=== PATIENT | female | born 1935 | race Caucasian/White ===

== ENCOUNTER 2017-03-25 12:24 | Inpatient (IN) | payer MEDICARE ==
[~2017-03-25] VITALS: Ht 157.5 cm; Wt 69.5 kg
[~2017-03-25 12:24] MED LIST: ACEDIPPM PO; ALEN70 PO; AMLO5 PO; ASPI325 PO; ASPI81EC PO; Acetaminophen1 EAC2 PO; CALCA500CH PO; CALCAVITDA PO; CELE200 PO; CITA20 PO; CLOP75 PO; CYCL10 PO; HYDCHL12.5 PO; HYDR1TAB94 PO; LANS15EC PO; LAVAP17G PO; LISI20 PO; METO50ER PO; MULTI VITAMIN1 EACH PO; MULVITA PO; NITR100CA PO; OLME20 PO; OMEP20ER PO; OMEPRAZOLE MAGN20 MG PO; ONDA4 PO; PANT40 PO; POTCHL10ER PO; PRAV40 PO; RANI150 PO; SIMV10 PO; SIMV20 PO; Zocor20 MG PO; Zofran8 MG PO
[2017-03-25] MEDS ORDERED: Advil200 M1 PO (13:13)
[2017-03-25] MEDS ORDERED: [UNRECOGNIZED DRUG - CODE] PO (13:13)
[2017-03-25] MEDS ORDERED: EYE DROP TEARS15 ML (13:14)
[2017-03-25] MEDS ORDERED: VITAMIN D32000 UNI1 PO (13:14)
[2017-03-25 13:15] LABS: BASOPHILS ABSOLUTE AUTO 0.02 K/mm3 (0.00-0.23); BASOPHILS PERCENT AUTO 0 % (0-2); EOSINOPHILS ABSOLUTE AUTO 0.24 K/mm3 (0.00-0.68); EOSINOPHILS PERCENT AUTO 5 % (0-6); Hematocrit 35.9 % (33.0-51.0); Hemoglobin 11.2 g/dL (11.5-16.0); IMMATURE GRAN ABSOLUTE AUTO 0.03 K/mm3 (0.00-0.10); IMMATURE GRAN PERCENT AUTO 1 % (0-1); LYMPHOCYTES PERCENT AUTO 24 % (21-46); MONOCYTES ABSOLUTE AUTO 0.73 K/mm3 (0.16-1.47); MONOCYTES PERCENT AUTO 14 % (4-13); Mean Corpuscular HGB 25.3 pg (26.0-34.0); Mean Corpuscular HGB Conc 31.2 g/dL (31.5-36.5); Mean Corpuscular Volume 81 fL (80-100); NEUTROPHILS ABSOLUTE AUTO 3.06 K/mm3 (1.96-9.15); NEUTROPHILS PERCENT AUTO 57 % (41-73); Platelet Count 346 K/mm3 (150-400); RDW Coefficient Variation 13.2 % (11.7-14.2); RDW Standard Deviation 39.6 fL (35.1-46.3); Red Blood Cell Count 4.42 M/mm3 (3.80-5.20); White Blood Cell Count 5.38 K/mm3 (4.00-11.30)
[2017-03-25] MEDS ORDERED: TORSE20 PO (13:15)
[2017-03-25] MEDS ORDERED: SIMV10 PO (13:15)
[2017-03-25] MEDS ORDERED: CALCIUM PO (13:16)
[2017-03-25] MEDS ORDERED: ASCO500 PO (13:16)
[2017-03-25 13:28] LABS: Alanine Aminotransfer (ALT/SGP 32 U/L (12-78); Albumin, Blood 3.1 g/dL (3.4-5.0); Alk Phos 108 U/L (50-136); Anion Gap 10 mmol/L (6-16); Aspartate Aminotrans (AST/SGOT 23 U/L (12-37); Bilirubin, Total 0.3 mg/dL (0.1-1.0); Blood Urea Nitrogen 4 mg/dL (8-24); Bun/Creatinine Ratio 7.9 (12.0-20.0); CO2, Blood 26 mmol/L (21-32); Chloride, Blood 88 mmol/L (98-108); Creatinine, Blood 0.51 mg/dL (0.40-1.00); Globulin, Blood 3.1 g/dL (2.2-4.0); Glomerular Filtration Rate >60 (60-); Glucose, Blood 115 mg/dL (70-99); Potassium, Blood 3.4 mmol/L (3.5-5.5); Sodium, Blood 124 mmol/L (136-145); Total Protein, Blood 6.2 g/dL (6.4-8.2)
[2017-03-25 14:09] LABS: Influenza A Negative (NEGATIVE); Influenza B Negative (NEGATIVE)
[2017-03-25 15:03] LABS: Source, Urine Clean Catch
[2017-03-25 15:05] LABS: Appearance, Urine Clear (Clear); Bilirubin, Urine Neg (Neg); Blood, Urine Neg (Neg); Color, Urine Yellow (P-Yellow); Glucose Qualitative, Urine Neg (Neg); Ketones, Urine Neg (Neg); Leukocyte Esterase, Urine Neg (Neg); Nitrite, Urine Neg (Neg); Protein, Urine Neg (Neg); Urobilinogen, Urine NORM (Normal)
[2017-03-26 05:15] LABS: BASOPHILS ABSOLUTE AUTO 0.01 K/mm3 (0.00-0.23); BASOPHILS PERCENT AUTO 0 % (0-2); EOSINOPHILS PERCENT AUTO 0 % (0-6); Hematocrit 32.1 % (33.0-51.0); Hemoglobin 10.4 g/dL (11.5-16.0); IMMATURE GRAN ABSOLUTE AUTO 0.01 K/mm3 (0.00-0.10); IMMATURE GRAN PERCENT AUTO 0 % (0-1); LYMPHOCYTES ABSOLUTE AUTO 0.63 K/mm3 (0.84-5.20); LYMPHOCYTES PERCENT AUTO 18 % (21-46); MONOCYTES ABSOLUTE AUTO 0.19 K/mm3 (0.16-1.47); MONOCYTES PERCENT AUTO 5 % (4-13); Mean Corpuscular HGB 25.5 pg (26.0-34.0); Mean Corpuscular HGB Conc 32.4 g/dL (31.5-36.5); Mean Corpuscular Volume 79 fL (80-100); Mean Platelet Volume 8.9 fL (9.1-12.4); NEUTROPHILS ABSOLUTE AUTO 2.66 K/mm3 (1.96-9.15); NEUTROPHILS PERCENT AUTO 76 % (41-73); Platelet Count 307 K/mm3 (150-400); RDW Standard Deviation 37.4 fL (35.1-46.3); Red Blood Cell Count 4.08 M/mm3 (3.80-5.20)
[2017-03-26 05:33] LABS: Anion Gap 6 mmol/L (6-16); Blood Urea Nitrogen 8 mg/dL (8-24); Bun/Creatinine Ratio 16.6 (12.0-20.0); CO2, Blood 24 mmol/L (21-32); Calcium, Blood 8.2 mg/dL (8.5-10.1); Chloride, Blood 98 mmol/L (98-108); Creatinine, Blood 0.48 mg/dL (0.40-1.00); Glomerular Filtration Rate >60 (60-); Glucose, Blood 172 mg/dL (70-99); Potassium, Blood 4.5 mmol/L (3.5-5.5); Sodium, Blood 128 mmol/L (136-145)
[2017-03-27 09:22] LABS: Anion Gap 7 mmol/L (6-16); Blood Urea Nitrogen 10 mg/dL (8-24); Bun/Creatinine Ratio 20.5 (12.0-20.0); CO2, Blood 23 mmol/L (21-32); Calcium, Blood 8.2 mg/dL (8.5-10.1); Chloride, Blood 98 mmol/L (98-108); Creatinine, Blood 0.49 mg/dL (0.40-1.00); Glomerular Filtration Rate >60 (60-); Glucose, Blood 146 mg/dL (70-99); Potassium, Blood 4.9 mmol/L (3.5-5.5); Sodium, Blood 128 mmol/L (136-145)
[2017-03-27] MEDS ORDERED: Tylenol325 MG PO (14:27)
[2017-03-27] MEDS ORDERED: ALBU90OI INH (14:28)
[2017-03-27] MEDS ORDERED: DOCU100 PO (14:28)
[2017-03-27] MEDS ORDERED: AZIT250 PO (14:29)
== END 2017-03-28 13:01 | disposition home health service (06) | DRG 202 ==
LOC: ER 12:24 → SURS 12:25
PROVIDERS: Emergency Medicine; Family Medicine; Internal Medicine Endocrinology, Diabetes & Metabolism
DX: J20.9 Acute bronchitis, unspecified (principal); E87.1 Hypo-osmolality and hyponatremia; E86.0 Dehydration; E87.6 Hypokalemia; R53.1 Weakness; I10 Essential (primary) hypertension; Z90.711 Acquired absence of uterus with remaining cervical stump
CPT/HCPCS: 36415; 71046; 80048; 80053; 81003; 85025; 87070; 87205; 87804; 93005; 93010; 94640; 94760; 96361; 96372; 96374; 96375; 99285; G0378; J1650; J2405; J2930; J3480; J7030

== ENCOUNTER 2017-06-06 22:12 | Inpatient (IN) | payer MEDICARE ==
[~2017-06-06] VITALS: Ht 160 cm; Wt 73.6 kg
[~2017-06-06 22:12] MED LIST changes: +ALBU90OI INH; +ASCO500 PO; +AZIT250 PO; +Advil200 M1 PO; +CALCIUM PO; +DOCU100 PO; +EYE DROP TEARS15 ML; +TORSE20 PO; +Tylenol325 MG PO; +VITAMIN D32000 UNI1 PO; +[UNRECOGNIZED DRUG - CODE] PO
[2017-06-06 22:37] LABS: BASOPHILS ABSOLUTE AUTO 0.01 K/mm3 (0.00-0.23); BASOPHILS PERCENT AUTO 0 % (0-2); EOSINOPHILS PERCENT AUTO 0 % (0-6); Hematocrit 31.8 % (33.0-51.0); Hemoglobin 10.2 g/dL (11.5-16.0); IMMATURE GRAN ABSOLUTE AUTO 0.04 K/mm3 (0.00-0.10); IMMATURE GRAN PERCENT AUTO 0 % (0-1); LYMPHOCYTES ABSOLUTE AUTO 0.84 K/mm3 (0.84-5.20); LYMPHOCYTES PERCENT AUTO 6 % (21-46); MONOCYTES ABSOLUTE AUTO 1.09 K/mm3 (0.16-1.47); MONOCYTES PERCENT AUTO 8 % (4-13); Mean Corpuscular HGB 22.9 pg (26.0-34.0); Mean Corpuscular HGB Conc 32.1 g/dL (31.5-36.5); Mean Corpuscular Volume 71 fL (80-100); Mean Platelet Volume 9.4 fL (9.1-12.4); NEUTROPHILS PERCENT AUTO 86 % (41-73); Platelet Count 379 K/mm3 (150-400); RDW Coefficient Variation 13.7 % (11.7-14.2); Red Blood Cell Count 4.46 M/mm3 (3.80-5.20); White Blood Cell Count 13.68 K/mm3 (4.00-11.30)
[2017-06-06 22:56] LABS: Troponin I <0.015 ng/mL (0.000-0.040)
[2017-06-06 22:57] LABS: Alanine Aminotransfer (ALT/SGP 31 U/L (12-78); Albumin, Blood 3.2 g/dL (3.4-5.0); Albumin/Globulin Ratio 1.1 (0.8-1.8); Alk Phos 70 U/L (50-136); Anion Gap 9 mmol/L (6-16); Aspartate Aminotrans (AST/SGOT 20 U/L (12-37); Bilirubin, Total 0.3 mg/dL (0.1-1.0); Blood Urea Nitrogen 18 mg/dL (8-24); Bun/Creatinine Ratio 26.2 (12.0-20.0); CO2, Blood 24 mmol/L (21-32); Calcium, Blood 8.5 mg/dL (8.5-10.1); Chloride, Blood 85 mmol/L (98-108); Creatinine, Blood 0.69 mg/dL (0.40-1.00); Globulin, Blood 2.9 g/dL (2.2-4.0); Glomerular Filtration Rate >60 (60-); Glucose, Blood 158 mg/dL (70-99); Potassium, Blood 4.6 mmol/L (3.5-5.5); Sodium, Blood 118 mmol/L (136-145); Total Protein, Blood 6.1 g/dL (6.4-8.2)
[2017-06-07 00:29] LABS: Source, Urine Clean Catch
[2017-06-07 00:35] LABS: Bilirubin, Urine Neg (Neg); Blood, Urine Neg (Neg); Glucose Qualitative, Urine Neg (Neg); Ketones, Urine Neg (Neg); Leukocyte Esterase, Urine Neg (Neg); Nitrite, Urine Neg (Neg); Protein, Urine Neg (Neg); Specific Gravity, Urine 1.005 (1.003-1.022); Urobilinogen, Urine NORM (Normal)
[2017-06-07 00:37] LABS: Appearance, Urine Clear (Clear); Color, Urine Pale Yellow (P-Yellow)
[2017-06-07] MEDS ORDERED: PANT40 PO (00:46)
[2017-06-07] MEDS ORDERED: ALEN70 PO (00:48)
[2017-06-07] MEDS ORDERED: CYAN500 PO (00:51)
[2017-06-07 01:59] LABS: Source, Urine Clean Catch
[2017-06-07 02:01] LABS: Appearance, Urine Clear (Clear); Bilirubin, Urine Neg (Neg); Blood, Urine Neg (Neg); Color, Urine Pale Yellow (P-Yellow); Glucose Qualitative, Urine Neg (Neg); Ketones, Urine Neg (Neg); Leukocyte Esterase, Urine Neg (Neg); Nitrite, Urine Neg (Neg); Protein, Urine Neg (Neg); Urobilinogen, Urine NORM (Normal)
[2017-06-07 05:09] LABS: BASOPHILS ABSOLUTE AUTO 0.01 K/mm3 (0.00-0.23); BASOPHILS PERCENT AUTO 0 % (0-2); EOSINOPHILS PERCENT AUTO 0 % (0-6); Hematocrit 29.8 % (33.0-51.0); Hemoglobin 9.6 g/dL (11.5-16.0); IMMATURE GRAN ABSOLUTE AUTO 0.07 K/mm3 (0.00-0.10); IMMATURE GRAN PERCENT AUTO 1 % (0-1); LYMPHOCYTES ABSOLUTE AUTO 0.87 K/mm3 (0.84-5.20); LYMPHOCYTES PERCENT AUTO 7 % (21-46); MONOCYTES PERCENT AUTO 8 % (4-13); Mean Corpuscular HGB 23.2 pg (26.0-34.0); Mean Corpuscular HGB Conc 32.2 g/dL (31.5-36.5); Mean Corpuscular Volume 72 fL (80-100); Mean Platelet Volume 9.2 fL (9.1-12.4); NEUTROPHILS ABSOLUTE AUTO 10.13 K/mm3 (1.96-9.15); NEUTROPHILS PERCENT AUTO 85 % (41-73); Platelet Count 365 K/mm3 (150-400); RDW Coefficient Variation 13.7 % (11.7-14.2); RDW Standard Deviation 36.1 fL (35.1-46.3); Red Blood Cell Count 4.14 M/mm3 (3.80-5.20); White Blood Cell Count 11.98 K/mm3 (4.00-11.30)
[2017-06-07 05:30] LABS: Anion Gap 6 mmol/L (6-16); Blood Urea Nitrogen 16 mg/dL (8-24); Bun/Creatinine Ratio 25.1 (12.0-20.0); CO2, Blood 24 mmol/L (21-32); Calcium, Blood 8.1 mg/dL (8.5-10.1); Chloride, Blood 94 mmol/L (98-108); Creatinine, Blood 0.64 mg/dL (0.40-1.00); Glomerular Filtration Rate >60 (60-); Glucose, Blood 126 mg/dL (70-99); Potassium, Blood 4.9 mmol/L (3.5-5.5); Sodium, Blood 124 mmol/L (136-145)
[2017-06-07 11:48] LABS: Anion Gap 4 mmol/L (6-16); Blood Urea Nitrogen 14 mg/dL (8-24); Bun/Creatinine Ratio 23.2 (12.0-20.0); CO2, Blood 26 mmol/L (21-32); Calcium, Blood 8.5 mg/dL (8.5-10.1); Chloride, Blood 97 mmol/L (98-108); Glomerular Filtration Rate >60 (60-); Glucose, Blood 98 mg/dL (70-99); Potassium, Blood 4.8 mmol/L (3.5-5.5); Sodium, Blood 127 mmol/L (136-145)
[2017-06-07 13:26] LABS: Free Thyroxine 1.23 ng/dL (0.70-1.60); Thyroid Stimulating Hormone 1.53 uIU/mL (0.360-4.800)
[2017-06-07 15:15] LABS: Anion Gap 7 mmol/L (6-16); Blood Urea Nitrogen 15 mg/dL (8-24); Bun/Creatinine Ratio 23.3 (12.0-20.0); CO2, Blood 23 mmol/L (21-32); Calcium, Blood 8.3 mg/dL (8.5-10.1); Chloride, Blood 99 mmol/L (98-108); Creatinine, Blood 0.65 mg/dL (0.40-1.00); Glomerular Filtration Rate >60 (60-); Glucose, Blood 130 mg/dL (70-99); Potassium, Blood 4.7 mmol/L (3.5-5.5); Sodium, Blood 129 mmol/L (136-145)
[2017-06-07 18:57] LABS: Sodium, Urine, Random 20 mmol/L (20-110)
[2017-06-07 19:06] LABS: Osmolality, Urine 114 mos/kg (15-1400)
[2017-06-07 22:53] LABS: Anion Gap 6 mmol/L (6-16); Blood Urea Nitrogen 15 mg/dL (8-24); Bun/Creatinine Ratio 23.5 (12.0-20.0); CO2, Blood 25 mmol/L (21-32); Calcium, Blood 8.8 mg/dL (8.5-10.1); Chloride, Blood 98 mmol/L (98-108); Creatinine, Blood 0.64 mg/dL (0.40-1.00); Glomerular Filtration Rate >60 (60-); Glucose, Blood 106 mg/dL (70-99); Potassium, Blood 4.5 mmol/L (3.5-5.5); Sodium, Blood 129 mmol/L (136-145)
[2017-06-08 04:58] LABS: BASOPHILS PERCENT AUTO 0 % (0-2); EOSINOPHILS ABSOLUTE AUTO 0.01 K/mm3 (0.00-0.68); EOSINOPHILS PERCENT AUTO 0 % (0-6); Hematocrit 29.7 % (33.0-51.0); Hemoglobin 9.4 g/dL (11.5-16.0); IMMATURE GRAN ABSOLUTE AUTO 0.06 K/mm3 (0.00-0.10); IMMATURE GRAN PERCENT AUTO 1 % (0-1); LYMPHOCYTES ABSOLUTE AUTO 1.34 K/mm3 (0.84-5.20); LYMPHOCYTES PERCENT AUTO 13 % (21-46); MONOCYTES ABSOLUTE AUTO 0.89 K/mm3 (0.16-1.47); MONOCYTES PERCENT AUTO 9 % (4-13); Mean Corpuscular HGB 23.1 pg (26.0-34.0); Mean Corpuscular HGB Conc 31.6 g/dL (31.5-36.5); Mean Corpuscular Volume 73 fL (80-100); NEUTROPHILS ABSOLUTE AUTO 7.75 K/mm3 (1.96-9.15); NEUTROPHILS PERCENT AUTO 77 % (41-73); Platelet Count 334 K/mm3 (150-400); RDW Coefficient Variation 14.3 % (11.7-14.2); RDW Standard Deviation 37.8 fL (35.1-46.3); Red Blood Cell Count 4.07 M/mm3 (3.80-5.20); White Blood Cell Count 10.05 K/mm3 (4.00-11.30)
[2017-06-08 05:22] LABS: Anion Gap 6 mmol/L (6-16); Blood Urea Nitrogen 13 mg/dL (8-24); Bun/Creatinine Ratio 20.2 (12.0-20.0); CO2, Blood 25 mmol/L (21-32); Calcium, Blood 8.4 mg/dL (8.5-10.1); Chloride, Blood 101 mmol/L (98-108); Creatinine, Blood 0.64 mg/dL (0.40-1.00); Glomerular Filtration Rate >60 (60-); Glucose, Blood 94 mg/dL (70-99); Potassium, Blood 4.5 mmol/L (3.5-5.5); Sodium, Blood 132 mmol/L (136-145)
== END 2017-06-08 14:51 | disposition home or self-care (01) | DRG 644 ==
LOC: ER 22:12 → MEDS 06-07 00:14 → ENPENDDIS 06-08 12:25 → MEDS 06-08 14:51
PROVIDERS: Emergency Medicine; Family Medicine; Internal Medicine
DX: E22.2 Syndrome of inappropriate secretion of antidiuretic hormone (principal); E27.40 Unspecified adrenocortical insufficiency; K21.9 Gastro-esophageal reflux disease without esophagitis; R41.0 Disorientation, unspecified; M48.061 Spinal stenosis, lumbar region without neurogenic claudication; I10 Essential (primary) hypertension; D50.9 Iron deficiency anemia, unspecified; Z90.710 Acquired absence of both cervix and uterus; Z79.02 Long term (current) use of antithrombotics/antiplatelets; Z87.891 Personal history of nicotine dependence
CPT/HCPCS: 36415; 71045; 80048; 80053; 80400; 81003; 82533; 83880; 83930; 83935; 84300; 84439; 84443; 84484; 85025; 93005; 93010; 94640; 94760; 96360; 96361; 99285; J0834; J1650; J7030

== ENCOUNTER → 2017-09-04 | Outpatient (CLI) | payer MEDICARE ==
[~2017-09-04] MED LIST changes: +CYAN500 PO
[2017-09-04 14:20] LABS: Alanine Aminotransfer (ALT/SGP 26 U/L (12-78); Albumin, Blood 3.5 g/dL (3.4-5.0); Albumin/Globulin Ratio 1.2 (0.8-1.8); Alk Phos 66 U/L (40-126); Anion Gap 6 mmol/L (6-16); Aspartate Aminotrans (AST/SGOT 20 U/L (12-37); Bilirubin, Total 0.4 mg/dL (0.1-1.0); Blood Urea Nitrogen 12 mg/dL (8-24); Bun/Creatinine Ratio 17.6 (12.0-20.0); CO2, Blood 30 mmol/L (21-32); Calcium, Blood 9.1 mg/dL (8.5-10.1); Chloride, Blood 96 mmol/L (98-108); Creatinine, Blood 0.68 mg/dL (0.40-1.00); Globulin, Blood 2.9 g/dL (2.2-4.0); Glomerular Filtration Rate >60 (60-); Glucose, Blood 88 mg/dL (70-99); Potassium, Blood 4.6 mmol/L (3.5-5.5); Sodium, Blood 132 mmol/L (136-145); Total Protein, Blood 6.4 g/dL (6.4-8.2)
== END | disposition home or self-care (01) ==
LOC: LAB SHORT 14:04 → LAB EV 14:04
PROVIDERS: Family Medicine
DX: E87.1 Hypo-osmolality and hyponatremia (principal); R06.02 Shortness of breath
CPT/HCPCS: 80053; 83880

== ENCOUNTER → 2018-03-20 | Outpatient (CLI) | payer MEDICARE | END | disposition home or self-care (01) | LOC: LAB EV 18:21 → LAB SHORT 18:21 | DX: R30.0 Dysuria (principal) | CPT/HCPCS: 87077; 87086; 87186 ==

== ENCOUNTER → 2018-03-21 | Outpatient (CLI) | payer MEDICARE | LOC: LAB SHORT 10:00 → LAB 10:00 | DX: L08.9 Local infection of the skin and subcutaneous tissue, unspecified (principal) | CPT/HCPCS: 87070; 87077; 87147; 87186; 87205 ==

== ENCOUNTER → 2018-03-28 | Outpatient (CLI) | payer MEDICARE ==
[2018-03-28 12:21] LABS: Candida species (DNA Probe) Negative (NEGATIVE); G. vaginalis (DNA Probe) Negative (NEGATIVE); T. vaginalis (DNA Probe) Negative (NEGATIVE)
== END ==
LOC: LAB SHORT 11:06 → LAB 11:06
PROVIDERS: Nurse Practitioner
DX: N72 Inflammatory disease of cervix uteri (principal)
CPT/HCPCS: 87480; 87510; 87660

== ENCOUNTER → 2018-07-16 | Outpatient (CLI) | payer MEDICARE ==
[2018-07-16 15:51] LABS: BASOPHILS ABSOLUTE AUTO 0.03 K/mm3 (0.00-0.23); BASOPHILS PERCENT AUTO 0 % (0-2); EOSINOPHILS PERCENT AUTO 1 % (0-6); Hematocrit 42.5 % (33.0-51.0); Hemoglobin 14.1 g/dL (11.5-16.0); IMMATURE GRAN ABSOLUTE AUTO 0.02 K/mm3 (0.00-0.10); IMMATURE GRAN PERCENT AUTO 0 % (0-1); LYMPHOCYTES ABSOLUTE AUTO 1.58 K/mm3 (0.84-5.20); LYMPHOCYTES PERCENT AUTO 23 % (21-46); MONOCYTES ABSOLUTE AUTO 0.73 K/mm3 (0.16-1.47); MONOCYTES PERCENT AUTO 11 % (4-13); Mean Corpuscular HGB 27.4 pg (26.0-34.0); Mean Corpuscular HGB Conc 33.2 g/dL (31.5-36.5); Mean Corpuscular Volume 83 fL (80-100); Mean Platelet Volume 9.1 fL (9.1-12.4); NEUTROPHILS ABSOLUTE AUTO 4.52 K/mm3 (1.96-9.15); NEUTROPHILS PERCENT AUTO 65 % (41-73); Platelet Count 302 K/mm3 (150-400); RDW Coefficient Variation 13.4 % (11.7-14.2); RDW Standard Deviation 40.5 fL (35.1-46.3); Red Blood Cell Count 5.14 M/mm3 (3.80-5.20); White Blood Cell Count 6.98 K/mm3 (4.00-11.30)
[2018-07-16 16:01] LABS: Alanine Aminotransfer (ALT/SGP 27 U/L (12-78); Albumin, Blood 3.4 g/dL (3.4-5.0); Alk Phos 99 U/L (40-126); Anion Gap 8 mmol/L (6-16); Aspartate Aminotrans (AST/SGOT 22 U/L (12-37); Bilirubin, Total 0.3 mg/dL (0.1-1.0); Blood Urea Nitrogen 12 mg/dL (8-24); Bun/Creatinine Ratio 18.8 (12.0-20.0); CO2, Blood 25 mmol/L (21-32); Calcium, Blood 8.7 mg/dL (8.5-10.1); Chloride, Blood 93 mmol/L (98-108); Creatinine, Blood 0.64 mg/dL (0.40-1.00); Globulin, Blood 3.4 g/dL (2.2-4.0); Glomerular Filtration Rate >60 (60-); Glucose, Blood 114 mg/dL (70-99); Potassium, Blood 4.5 mmol/L (3.5-5.5); Sodium, Blood 126 mmol/L (136-145); Total Protein, Blood 6.8 g/dL (6.4-8.2)
== END | disposition home or self-care (01) ==
LOC: LAB EV 15:42 → LAB SHORT 15:42
PROVIDERS: Family Medicine
DX: R10.9 Unspecified abdominal pain (principal)
CPT/HCPCS: 80053; 85025

== ENCOUNTER 2020-08-21 12:33 | Emergency (ER) | payer MEDICARE ==
[~2020-08-21] VITALS: Ht 157.5 cm; Wt 77.1 kg
[2020-08-21 13:02] LABS: BASOPHILS ABSOLUTE AUTO 0.03 K/mm3 (0.00-0.23); BASOPHILS PERCENT AUTO 1 % (0-2); EOSINOPHILS ABSOLUTE AUTO 0.07 K/mm3 (0.00-0.68); EOSINOPHILS PERCENT AUTO 1 % (0-6); Hematocrit 44.4 % (33.0-51.0); Hemoglobin 14.6 g/dL (11.5-16.0); IMMATURE GRAN ABSOLUTE AUTO 0.02 K/mm3 (0.00-0.10); IMMATURE GRAN PERCENT AUTO 0 % (0-1); LYMPHOCYTES ABSOLUTE AUTO 1.29 K/mm3 (0.84-5.20); LYMPHOCYTES PERCENT AUTO 21 % (21-46); MONOCYTES ABSOLUTE AUTO 0.63 K/mm3 (0.16-1.47); MONOCYTES PERCENT AUTO 10 % (4-13); Mean Corpuscular HGB 27.8 pg (26.0-34.0); Mean Corpuscular HGB Conc 32.9 g/dL (31.5-36.5); Mean Corpuscular Volume 85 fL (80-100); Mean Platelet Volume 8.6 fL (9.1-12.4); NEUTROPHILS ABSOLUTE AUTO 4.24 K/mm3 (1.96-9.15); NEUTROPHILS PERCENT AUTO 68 % (41-73); Platelet Count 292 K/mm3 (150-400); Red Blood Cell Count 5.25 M/mm3 (3.80-5.20); White Blood Cell Count 6.28 K/mm3 (4.00-11.30)
[2020-08-21 13:13] LABS: Alanine Aminotransfer (ALT/SGP 32 U/L (12-78); Albumin, Blood 3.3 g/dL (3.4-5.0); Albumin/Globulin Ratio 0.9 (0.8-1.8); Alk Phos 93 U/L (50-136); Anion Gap 6 mmol/L (6-16); Aspartate Aminotrans (AST/SGOT 21 U/L (12-37); Bilirubin, Total 0.3 mg/dL (0.1-1.0); Blood Urea Nitrogen 10 mg/dL (8-24); Bun/Creatinine Ratio 12.4 (12.0-20.0); CO2, Blood 30 mmol/L (21-32); Calcium, Blood 9.6 mg/dL (8.5-10.1); Chloride, Blood 96 mmol/L (98-108); Creatinine, Blood 0.81 mg/dL (0.40-1.00); Globulin, Blood 3.7 g/dL (2.2-4.0); Glomerular Filtration Rate >60 (60-); Glucose, Blood 164 mg/dL (70-99); Potassium, Blood 3.3 mmol/L (3.5-5.5); Sodium, Blood 132 mmol/L (136-145); Troponin I <0.015 ng/mL (0.000-0.040)
== END 2020-08-21 14:28 | disposition home or self-care (01) ==
LOC: ER 12:33
PROVIDERS: Emergency Medicine
DX: R06.02 Shortness of breath (principal); I10 Essential (primary) hypertension; E78.00 Pure hypercholesterolemia, unspecified; Z88.5 Allergy status to narcotic agent; Z88.8 Allergy status to other drugs, medicaments and biological substances; Z79.899 Other long term (current) drug therapy
CPT/HCPCS: 71046; 80053; 84484; 85025; 93005; 93010; 99284-25

== ENCOUNTER → 2020-12-28 | Outpatient (CLI) | payer MEDICARE ==
[2020-12-28 15:49] LABS: Source, Urine Voided
[2020-12-28 17:23] LABS: Appearance, Urine Clear (Clear); Bilirubin, Urine Neg (Neg); Blood, Urine 1+ (Neg); Color, Urine Yellow (P-Yellow); Glucose Qualitative, Urine Neg (Neg); Ketones, Urine Neg (Neg); Leukocyte Esterase, Urine Neg (Neg); Nitrite, Urine Neg (Neg); Protein, Urine 1+ (Neg); Specific Gravity, Urine 1.015 (1.003-1.022); Urobilinogen, Urine NORM (Normal); pH, Urine 6.5 (5.0-8.0)
[2020-12-28 17:42] LABS: Bacteria Few /hpf; Red Blood Cells, Urine Rare /hpf (0-2); Squamous Epithelial Cells Not Seen /hpf (Few); White Blood Cells, Urine Not Seen /hpf (0-5)
== END | disposition home or self-care (01) ==
LOC: LAB SHORT 15:48 → LAB 15:48
PROVIDERS: Physician Assistant
DX: R30.0 Dysuria (principal)
CPT/HCPCS: 81001

== ENCOUNTER → 2021-02-08 | Outpatient (CLI) | payer MEDICARE ==
[2021-02-08 17:04] LABS: Anion Gap 6 mmol/L (6-16); Blood Urea Nitrogen 15 mg/dL (8-24); Bun/Creatinine Ratio 21.7 (12.0-20.0); CO2, Blood 29 mmol/L (21-32); Calcium, Blood 9.5 mg/dL (8.5-10.1); Chloride, Blood 99 mmol/L (98-108); Creatinine, Blood 0.69 mg/dL (0.40-1.00); Glomerular Filtration Rate >60 (60-); Glucose, Blood 117 mg/dL (70-99); Potassium, Blood 4.4 mmol/L (3.5-5.5); Sodium, Blood 134 mmol/L (136-145)
== END ==
LOC: LAB 14:58 → LAB SHORT 14:58
PROVIDERS: Physician Assistant
DX: E87.1 Hypo-osmolality and hyponatremia (principal)
CPT/HCPCS: 80048

== ENCOUNTER 2021-04-13 18:21 | Emergency (ER) | payer MEDICARE ==
[~2021-04-13] VITALS: Ht 157.5 cm; Wt 74.8 kg
[~2021-04-13 18:21] MED LIST changes: +THERA-D2000 UNIT PO; -VITAMIN D32000 UNI1 PO
[2021-04-13] MEDS ORDERED: ZOLOFT25 MG PO (18:44)
[2021-04-13] MEDS ORDERED: ASPI81CH PO (18:45)
[2021-04-13 18:58] LABS: BASOPHILS ABSOLUTE AUTO 0.03 K/mm3 (0.00-0.23); BASOPHILS PERCENT AUTO 0 % (0-2); EOSINOPHILS ABSOLUTE AUTO 0.07 K/mm3 (0.00-0.68); EOSINOPHILS PERCENT AUTO 1 % (0-6); Hematocrit 41.7 % (33.0-51.0); Hemoglobin 13.6 g/dL (11.5-16.0); IMMATURE GRAN ABSOLUTE AUTO 0.03 K/mm3 (0.00-0.10); IMMATURE GRAN PERCENT AUTO 0 % (0-1); LYMPHOCYTES ABSOLUTE AUTO 1.32 K/mm3 (0.84-5.20); LYMPHOCYTES PERCENT AUTO 16 % (21-46); MONOCYTES PERCENT AUTO 13 % (4-13); Mean Corpuscular HGB 29.1 pg (26.0-34.0); Mean Corpuscular HGB Conc 32.6 g/dL (31.5-36.5); Mean Corpuscular Volume 89 fL (80-100); NEUTROPHILS ABSOLUTE AUTO 5.92 K/mm3 (1.96-9.15); NEUTROPHILS PERCENT AUTO 70 % (41-73); Platelet Count 264 K/mm3 (150-400); RDW Coefficient Variation 12.4 % (11.7-14.2); RDW Standard Deviation 40.8 fL (35.1-46.3); Red Blood Cell Count 4.68 M/mm3 (3.80-5.20); White Blood Cell Count 8.47 K/mm3 (4.00-11.30)
[2021-04-13 19:10] LABS: Alanine Aminotransfer (ALT/SGP 32 U/L (12-78); Albumin, Blood 3.2 g/dL (3.4-5.0); Alk Phos 87 U/L (50-136); Anion Gap 6 mmol/L (6-16); Aspartate Aminotrans (AST/SGOT 20 U/L (12-37); Bilirubin, Total 0.3 mg/dL (0.1-1.0); Blood Urea Nitrogen 15 mg/dL (8-24); Bun/Creatinine Ratio 22.8 (12.0-20.0); CO2, Blood 26 mmol/L (21-32); Calcium, Blood 9.3 mg/dL (8.5-10.1); Chloride, Blood 99 mmol/L (98-108); Creatinine, Blood 0.66 mg/dL (0.40-1.00); Globulin, Blood 3.2 g/dL (2.2-4.0); Glomerular Filtration Rate >60 (60-); Glucose, Blood 141 mg/dL (70-99); Potassium, Blood 4.1 mmol/L (3.5-5.5); Sodium, Blood 131 mmol/L (136-145); Total Protein, Blood 6.4 g/dL (6.4-8.2)
[2021-04-13 20:42] LABS: Source, Urine Clean Catch
[2021-04-13 20:48] LABS: Appearance, Urine Hazy (Clear); Bilirubin, Urine Neg (Neg); Blood, Urine Neg (Neg); Color, Urine Yellow (P-Yellow); Glucose Qualitative, Urine Neg (Neg); Ketones, Urine Neg (Neg); Leukocyte Esterase, Urine 1+ (Neg); Nitrite, Urine Neg (Neg); Protein, Urine 2+ (Neg); Specific Gravity, Urine 1.015 (1.003-1.022); Urobilinogen, Urine NORM (Normal)
[2021-04-13 21:16] LABS: Bacteria Mod /hpf; Squamous Epithelial Cells Mod /hpf (Few)
[2021-04-15] MEDS ORDERED: MIRALAX17 GM PO (00:39)
[2021-04-15] MEDS ORDERED: MULVITA PO (00:40)
== END 2021-04-14 00:27 | disposition home or self-care (01) ==
LOC: ER 18:21
PROVIDERS: Emergency Medicine
DX: S80.12XA Contusion of left lower leg, initial encounter (principal); S40.022A Contusion of left upper arm, initial encounter; K21.9 Gastro-esophageal reflux disease without esophagitis; M19.90 Unspecified osteoarthritis, unspecified site; I10 Essential (primary) hypertension; E78.5 Hyperlipidemia, unspecified; Z88.5 Allergy status to narcotic agent; Z88.8 Allergy status to other drugs, medicaments and biological substances; Z79.82 Long term (current) use of aspirin; Z79.899 Other long term (current) drug therapy; W18.30XA Fall on same level, unspecified, initial encounter
CPT/HCPCS: 73502; 80053; 81001; 85025; 87086; 93005; 93010; J7030

== ENCOUNTER 2021-04-14 20:33 | Inpatient (IN) | payer MEDICARE ==
[~2021-04-14] VITALS: Ht 157.5 cm; Wt 81.7 kg
[~2021-04-14 20:33] MED LIST changes: +ASPI81CH PO; +ZOLOFT25 MG PO
[2021-04-14 20:59] LABS: BASOPHILS ABSOLUTE AUTO 0.02 K/mm3 (0.00-0.23); BASOPHILS PERCENT AUTO 0 % (0-2); EOSINOPHILS ABSOLUTE AUTO 0.16 K/mm3 (0.00-0.68); EOSINOPHILS PERCENT AUTO 2 % (0-6); Hematocrit 40.8 % (33.0-51.0); Hemoglobin 13.2 g/dL (11.5-16.0); IMMATURE GRAN ABSOLUTE AUTO 0.03 K/mm3 (0.00-0.10); IMMATURE GRAN PERCENT AUTO 0 % (0-1); LYMPHOCYTES PERCENT AUTO 19 % (21-46); MONOCYTES ABSOLUTE AUTO 0.78 K/mm3 (0.16-1.47); MONOCYTES PERCENT AUTO 11 % (4-13); Mean Corpuscular HGB 29.2 pg (26.0-34.0); Mean Corpuscular HGB Conc 32.4 g/dL (31.5-36.5); Mean Corpuscular Volume 90 fL (80-100); NEUTROPHILS ABSOLUTE AUTO 5.01 K/mm3 (1.96-9.15); NEUTROPHILS PERCENT AUTO 68 % (41-73); Platelet Count 237 K/mm3 (150-400); RDW Coefficient Variation 12.6 % (11.7-14.2); RDW Standard Deviation 41.4 fL (35.1-46.3); Red Blood Cell Count 4.52 M/mm3 (3.80-5.20)
[2021-04-14 21:19] LABS: Alanine Aminotransfer (ALT/SGP 34 U/L (12-78); Albumin/Globulin Ratio 0.9 (0.8-1.8); Alk Phos 86 U/L (50-136); Anion Gap 5 mmol/L (6-16); Aspartate Aminotrans (AST/SGOT 23 U/L (12-37); Bilirubin, Total 0.4 mg/dL (0.1-1.0); Blood Urea Nitrogen 16 mg/dL (8-24); Bun/Creatinine Ratio 21.4 (12.0-20.0); CO2, Blood 26 mmol/L (21-32); Chloride, Blood 101 mmol/L (98-108); Creatinine, Blood 0.75 mg/dL (0.40-1.00); Globulin, Blood 3.3 g/dL (2.2-4.0); Glomerular Filtration Rate >60 (60-); Glucose, Blood 132 mg/dL (70-99); Potassium, Blood 4.1 mmol/L (3.5-5.5); Sodium, Blood 132 mmol/L (136-145); Total Protein, Blood 6.3 g/dL (6.4-8.2)
[2021-04-15] MEDS ORDERED: MIRALAX17 GM PO (00:39)
[2021-04-15] MEDS ORDERED: MULVITA PO (00:40)
--- NOTE | 2021-04-15 03:55 | NUR ---
ADMISSION: PT ARRIVED TO FLOOR AND NEEDED A SLIDE SHEET FOR TRANSFER. SHE IS [place] W/ HEARING AIDS AT THE BEDSIDE. THE PT WAS IN THE ED (04/13) FOR RECENT GLF AND GENERAL WEAKNESS AND WAS DISCHARGED HOME. AT HOME, DAUGHTER FOUND THE PT WITH SOME LF HEMIPARESIS AND SHE WAS BROUGHT BACK IN. HEAD CT DID NOT SHOW ANY BLEEDING; SHE WAS NOT A CANDIDATE FOR TPA, AND WAS GIVEN ASA IN THE ED. SHE DOES NOT HAVE ANY SPEECH DEFICITS AND ANSWERED MOST QUESTIONS APPROPRIATELY. PER TELE MONITOR SHE IS SR/90s/BBB. DUE TO WEAKNESS SHE DID USE THE BEDPAN SUCCESSFULLY. SHE CURRENTLY LIVES ALONE W/ CAREGIVERS THAT DROP BY ON OCCASSION. THE BED IS IN THE LOWEST POSITION, CALL LIGHT WITHIN REACH, AND WE'LL CONTINUE TO MONITOR THE REMAINDER OF THE SHIFT.
[2021-04-15 05:19] LABS: Anion Gap 5 mmol/L (6-16); Blood Urea Nitrogen 13 mg/dL (8-24); CO2, Blood 27 mmol/L (21-32); Chloride, Blood 101 mmol/L (98-108); Cholesterol 135 mg/dL (50-200); Glucose, Blood 89 mg/dL (70-99); HDL Cholesterol 66 mg/dL (>39); LDL/HDL RATIO 0.8; Low Density Lipoprotein Chol 54 mg/dL (0-110); Sodium, Blood 133 mmol/L (136-145); Triglycerides 73 mg/dL (30-160); Very Low Density Lipoprot Chol 14 mg/dL (6-32)
[2021-04-15 05:25] LABS: Bun/Creatinine Ratio 21.7 (12.0-20.0); Glomerular Filtration Rate >60 (60-)
--- NOTE | 2021-04-15 06:30 | NUR ---
SHIFT SUMMARY: PT IS A/OX3-4. SHE DOES HAVE SOME VISIBLE DROOP TO THE LEFT-SIDE OF HER FACE. SHE ALSO HAS SOME UPPER/LOWER EXTREMITY DRIFTING ON HER LEFT SIDE WELL. OVERALL SHE IS GENERALLY WEAK AND BEDBOUND, BUT SHE CAN ASSIST MINIMALLY WITH TURNING IN BED AND LIFTING HER HIPS. SHE HAS USED HER CALL LIGHT FOR NEEDS. PER TELE MONITOR SHE WAS SR/75. SHE IS VOIDING VIA BEDPAN AND HAS NOT HAD A BM ON THE NOC SHIFT. SHE HAS PASSED A SWALLOW EVAL AND CAN TAKE PO MEDS WHOLE ONE AT A TIME. THE BED IS IN THE LOWEST POSITION, CALL LIGHT WITHIN REACH, AND ALARM IS SET. WE'LL CONTINUE TO MONITOR THE REMAINDER OF THE SHIFT.
--- NOTE | 2021-04-15 11:47 | NUR ---
Initial Assessment with [facility] Community Commercial Relationship Manager 1. Who did you speak with? Spoke with patient 2. What is the patient's prior level of functions? Patient lives independently in a home. She has a caregiver Agnes who comes in daily from 10:00 am to 3:00 pm. Agnes has provided caregiving services x 6 years. Caregiver Agnes assists with ADL's. Patient uses a walker and has a shower chair. [place] lives in a single story dwelling with a ramp at the entrance. Patient has a dog named . 3. Is the patient and/or family able to provide transportation to and from doctor's appointments and picking table worker prescriptions? Agnes and daughter Neli provides transportation as needed 4. Does patient still drive? 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 5. POA/PCP/NOK: NOK: Neli Munoz daughter [phone]/[facility] PCP QUIQUE Solorzano 6. ANTICIPATED DISCHARGE NEEDS/GOALS: SNF -SNF preference [facility] (per daughter Neli Munoz)-packet emailed to Liaison Beatriz Ruiz on 04/15/21. -Daughter Neli and caregiver Agnes assists with medication management -Preferred Pharmacy[facility] 7. List barriers to discharge: No barriers on this date 8. Discharge Plan: SNF/TBD and follow up with [place] PCP Dr. Solorzano 9. PCP Follow up appointment: Will be scheduled within seven calendar days of discharge. 10. OTHER COMMENTS: Patient is not a
--- NOTE | 2021-04-15 16:22 | NUR ---
SHIFT SUMMARY PATIENT DENIES PAIN, NAUSEA, AND SHORTNESS OF BREATH. PATIENT WORKED WITH PT AND OT. THEY ARE RECOMMENDING A LIFT FOR TRANSFERS. THEY ARE ALSO RECOMMENDING SNF. PATIENT ALSO WORKED WITH SPEECH THERAPY. THEY RECOMMEND SOFT, BITE SIZE AND 1:1 SUPERVISION WHEN EATING. PATIENT IS EATING AND DRINKING WELL. PATIENT IS PLEASANT AND COOPERATIVE WITH CARE. PER CONCRETE BATCH PLANT OPERATOR, [facility] AND COULD POSSIBLE GO THERE TOMORROW DEPENDING ON BED AVAILABILITY.
--- NOTE | 2021-04-16 04:26 | NUR ---
SHIFT SUMMARY ALERT, ABLE TO MAKE NEEDS KNOWN. NOTED SOME SLURRED SPEECH. BED REST. L PLANTAR REFLEX INTACT. MOVES L LEG IN REACTION. HOME HEALTH OCCUPATIONAL THERAPIST UNEQUAL. L SIDE SLOW AND WEAK. L SIDED FACIAL DROOP. NO C/O PAIN/DISCOMFORT. APPEARED TO REST OFF AN ON T/O NIGHT. VSS/AFEBRILE. BED REMAINS IN LOWEST; ALARM ON. CALL LIGHT AND BELONGINGS WITHIN REACH. REPORT TO ONCOMING RN.
[2021-04-16 05:13] LABS: BASOPHILS ABSOLUTE AUTO 0.04 K/mm3 (0.00-0.23); BASOPHILS PERCENT AUTO 1 % (0-2); EOSINOPHILS ABSOLUTE AUTO 0.02 K/mm3 (0.00-0.68); EOSINOPHILS PERCENT AUTO 0 % (0-6); Hematocrit 40.1 % (33.0-51.0); IMMATURE GRAN ABSOLUTE AUTO 0.02 K/mm3 (0.00-0.10); IMMATURE GRAN PERCENT AUTO 0 % (0-1); LYMPHOCYTES ABSOLUTE AUTO 0.97 K/mm3 (0.84-5.20); LYMPHOCYTES PERCENT AUTO 12 % (21-46); MONOCYTES ABSOLUTE AUTO 0.63 K/mm3 (0.16-1.47); MONOCYTES PERCENT AUTO 8 % (4-13); Mean Corpuscular HGB Conc 32.4 g/dL (31.5-36.5); Mean Corpuscular Volume 90 fL (80-100); Mean Platelet Volume 9.4 fL (9.1-12.4); NEUTROPHILS ABSOLUTE AUTO 6.45 K/mm3 (1.96-9.15); NEUTROPHILS PERCENT AUTO 80 % (41-73); Platelet Count 245 K/mm3 (150-400); RDW Coefficient Variation 12.4 % (11.7-14.2); RDW Standard Deviation 40.4 fL (35.1-46.3); Red Blood Cell Count 4.48 M/mm3 (3.80-5.20); White Blood Cell Count 8.13 K/mm3 (4.00-11.30)
[2021-04-16 05:35] LABS: Alanine Aminotransfer (ALT/SGP 27 U/L (12-78); Albumin, Blood 2.8 g/dL (3.4-5.0); Albumin/Globulin Ratio 0.8 (0.8-1.8); Alk Phos 83 U/L (50-136); Anion Gap 6 mmol/L (6-16); Aspartate Aminotrans (AST/SGOT 22 U/L (12-37); Bilirubin, Total 0.6 mg/dL (0.1-1.0); Blood Urea Nitrogen 15 mg/dL (8-24); CO2, Blood 27 mmol/L (21-32); Chloride, Blood 98 mmol/L (98-108); Globulin, Blood 3.3 g/dL (2.2-4.0); Glomerular Filtration Rate >60 (60-); Glucose, Blood 117 mg/dL (70-99); Potassium, Blood 4.5 mmol/L (3.5-5.5); Sodium, Blood 131 mmol/L (136-145); Total Protein, Blood 6.1 g/dL (6.4-8.2)
[2021-04-16] MEDS ORDERED: CLOP75 PO (10:50)
[2021-04-16] MEDS ORDERED: ATOR80 (10:51)
[2021-04-16] MEDS ORDERED: ENOX40I SC (10:52)
[2021-04-16] MEDS ORDERED: ATOR80 PO (10:52)
[2021-04-16 12:12] LABS: Influenza A, PCR NEGATIVE (NEGATIVE); Influenza B, PCR NEGATIVE (NEGATIVE); Resp Syncytial Virus, PCR NEGATIVE (NEGATIVE); SARS-Cov-2 (COVID-19) PCR, MMC NEGATIVE (NEGATIVE)
--- NOTE | 2021-04-16 17:24 | NUR ---
PT RESTING QUIETLY AT START OF SHIFT. VERY SLEEPY TODAY. PT REPORTED NOT GETTING MUCH SLEEP LATELY. ADMITTED FOR CVA WITH L SIDE DEFICITS. PT VERY WEAK ON R SIDE WELL, BUT EVEN WEAKER ON L SIDE. L FACIAL DROOP. SOME SLURRED SPEECH, BUT VERY UNDERSTANDABLE. P/T IN TO WORK WITH PT, BUT VERY MINIMAL PARTICIPATION FROM PT. PT IS CONTINENT OF BOWEL AND BLADDER. SOME DIARRHEA TODAY. PT INSISTED ON COLACE BID AND MIRALAX QD. COLACE GIVEN, BUT MIRALAX NOT ORDERED. PT MEDICALLY CLEARED FOR D/C TO SNF. BED AVAILABLE AT [facility]. DBAS ARRANGED TX. REPORT CALLED TO JIM HERNANDEZ @ 0476. PT'S DAUGHTER, SID, ALSO NOTIFIED AND WENT TO ASSIT PT IN GETTING SET UP FOR REHAB. SLIDE TX TO ITZ PT UNABLE TO STAND AT THIS POINT YET. BELONGINGS WENT WITH PT.
--- NOTE | 2021-04-18 09:23 | NUR ---
Per Dr. Carroll discharge appropriate. Patient and daughter do not oppose discharge. Patient discharged SNF: [facility]. Date of discharge: 04/16/2021 Date of admission: 04/14/2021 Provisional diagnosis at time of admission: CVA Final Diagnosis at time of discharge: CVA Location: Patient is discharged [facility] Transportation provided by: [facility] by steve KENNEDY Ordered: None needed Follow-ups needed: [facility] LISA will contact [facility] to schedule hospital follow-up with PCP QUIQUE Solorzano Confirmed numbers: Jake Quinteros [phone] (foam charger at [facility]) Provider/PCP: QUIQUE Solorzano When: WITHIN 1 WEEK Specialty: N/A When: N/A Comment: No barriers to discharge. Patient has a strong support network.
== END 2021-04-16 14:34 | DRG 65 ==
LOC: ER 20:33 → MEDS 20:34
PROVIDERS: Hospitalist; Physician Assistant; Student in an Organized Health Care Education/Training Program; ADMIT Family Medicine
DX: I63.9 Cerebral infarction, unspecified (principal); G81.94 Hemiplegia, unspecified affecting left nondominant side; E87.1 Hypo-osmolality and hyponatremia; Z20.822 Contact with and (suspected) exposure to COVID-19; M48.061 Spinal stenosis, lumbar region without neurogenic claudication; K21.9 Gastro-esophageal reflux disease without esophagitis; M19.90 Unspecified osteoarthritis, unspecified site; H91.90 Unspecified hearing loss, unspecified ear; R29.810 Facial weakness; F32.A Depression, unspecified; E78.5 Hyperlipidemia, unspecified; R29.6 Repeated falls; I10 Essential (primary) hypertension; Z53.29 Procedure and treatment not carried out because of patient's decision for other reasons; Z90.710 Acquired absence of both cervix and uterus; Z98.891 History of uterine scar from previous surgery; Z87.19 Personal history of other diseases of the digestive system; Z88.6 Allergy status to analgesic agent; Z88.8 Allergy status to other drugs, medicaments and biological substances; Z79.82 Long term (current) use of aspirin; Z79.899 Other long term (current) drug therapy
CPT/HCPCS: 0241U; 36415; 70450; 70496; 70498; 70551; 80048; 80053; 80061; 84443; 85025; 92610; 93005; 93010; 93306; 97110; 97112; 97112-CO; 97163; 97167; 97530; 99285-25; A9270; J1650; Q9967

== ENCOUNTER 2022-02-22 23:31 | Inpatient (IN) | payer MEDICARE ==
[~2022-02-22] VITALS: Ht 172.7 cm; Wt 65.9 kg
[~2022-02-22 23:31] MED LIST changes: +ATOR80; +ATOR80 PO; +ENOX40I SC; +MIRALAX17 GM PO
[2022-02-23] LABS: BASOPHILS ABSOLUTE AUTO 0.01 K/mm3 (0.00-0.23); BASOPHILS PERCENT AUTO 0 % (0-2); EOSINOPHILS PERCENT AUTO 0 % (0-6); Hematocrit 24.4 % (33.0-51.0); Hemoglobin 7.8 g/dL (11.5-16.0); IMMATURE GRAN ABSOLUTE AUTO 0.11 K/mm3 (0.00-0.10); IMMATURE GRAN PERCENT AUTO 1 % (0-1); LYMPHOCYTES PERCENT AUTO 5 % (21-46); MONOCYTES ABSOLUTE AUTO 0.88 K/mm3 (0.16-1.47); MONOCYTES PERCENT AUTO 6 % (4-13); Mean Corpuscular HGB 27.7 pg (26.0-34.0); Mean Corpuscular Volume 87 fL (80-100); Mean Platelet Volume 9.6 fL (9.1-12.4); NEUTROPHILS ABSOLUTE AUTO 13.13 K/mm3 (1.96-9.15); NEUTROPHILS PERCENT AUTO 88 % (41-73); Platelet Count 483 K/mm3 (150-400); RDW Coefficient Variation 19.9 % (11.7-14.2); RDW Standard Deviation 62.2 fL (35.1-46.3); Red Blood Cell Count 2.82 M/mm3 (3.80-5.20); White Blood Cell Count 14.93 K/mm3 (4.00-11.30)
[2022-02-23 00:12] LABS: Albumin, Blood 1.3 g/dL (3.4-5.0); Albumin/Globulin Ratio 0.4 (0.8-1.8); Bilirubin, Total 0.4 mg/dL (0.1-1.0); Calcium, Blood 7.2 mg/dL (8.5-10.1); Creatinine, Blood 1.21 mg/dL (0.40-1.00); Globulin, Blood 3.2 g/dL (2.2-4.0); Magnesium, Blood 1.9 mg/dL (1.6-2.4); Potassium, Blood 3.9 mmol/L (3.5-5.5); Total Protein, Blood 4.5 g/dL (6.4-8.2)
[2022-02-23 00:35] LABS: Source, Urine Straight Cath
[2022-02-23 00:38] LABS: Base Excess Venous -3.2 mmol/L; Bicarbonate Venous 21.7 mmol/L (24.0-30.0); PCO2 Venous 36.9 mmHg (38-42); pH Blood Venous 7.38 (7.34-7.37)
[2022-02-23 00:42] LABS: Appearance, Urine Cloudy (Clear); Blood, Urine 1+ (Neg); Color, Urine Yellow (P-Yellow); Glucose Qualitative, Urine Neg (Neg); Ketones, Urine Neg (Neg); Leukocyte Esterase, Urine 1+ (Neg); Nitrite, Urine Neg (Neg); Protein, Urine 2+ (Neg); Urobilinogen, Urine 2+ (Normal)
[2022-02-23 00:54] LABS: Influenza A, PCR NEGATIVE (NEGATIVE); Influenza B, PCR NEGATIVE (NEGATIVE); Resp Syncytial Virus, PCR NEGATIVE (NEGATIVE); SARS-Cov-2 (COVID-19) PCR, MMC NEGATIVE (NEGATIVE)
[2022-02-23 01:08] LABS: Bilirubin, Urine 1+ (Neg)
[2022-02-23 01:11] LABS: Granular Casts 0-2 /lpf (0); Hyaline Casts 0-2 /lpf (0-2); Red Blood Cells, Urine 0-2 /hpf (0-2); Squamous Epithelial Cells Few /hpf (Few)
[2022-02-23 01:12] LABS: Amorphous Light (0-Heavy); Bacteria Mod /hpf; Mucus Light (0-Heavy)
--- NOTE | 2022-02-23 04:00 | NUR ---
PT ARRIVED FROM ER. REPORT FROM NEIL HERNANDEZ. PT IS ABLE TO ANSWER QUESTIONS. ORIENTED TO SELF, PLACE, AND FAMILY. PT HAS LEVOPHED INFUSING @10MCG/MIN THROUGH 22GA IV IN THE LAC. IV ACCESS IN L FOOT THAT FLUSHES BUT PT COMPLAINS OF PAIN. PT ON RA. RR 16, SPO2 >92%. HR 90'S, SBP SOFT, MAP 60'S.
[2022-02-23 04:45] LABS: BASOPHILS ABSOLUTE AUTO 0.03 K/mm3 (0.00-0.23); BASOPHILS PERCENT AUTO 0 % (0-2); EOSINOPHILS PERCENT AUTO 0 % (0-6); Hemoglobin 9.3 g/dL (11.5-16.0); IMMATURE GRAN ABSOLUTE AUTO 0.16 K/mm3 (0.00-0.10); IMMATURE GRAN PERCENT AUTO 1 % (0-1); LYMPHOCYTES ABSOLUTE AUTO 1.19 K/mm3 (0.84-5.20); LYMPHOCYTES PERCENT AUTO 6 % (21-46); MONOCYTES ABSOLUTE AUTO 1.32 K/mm3 (0.16-1.47); MONOCYTES PERCENT AUTO 6 % (4-13); Mean Corpuscular HGB 27.8 pg (26.0-34.0); Mean Platelet Volume 10.1 fL (9.1-12.4); NEUTROPHILS ABSOLUTE AUTO 18.03 K/mm3 (1.96-9.15); NEUTROPHILS PERCENT AUTO 87 % (41-73); Platelet Count 484 K/mm3 (150-400); RDW Coefficient Variation 19.9 % (11.7-14.2); Red Blood Cell Count 3.35 M/mm3 (3.80-5.20); White Blood Cell Count 20.73 K/mm3 (4.00-11.30)
[2022-02-23 05:39] LABS: Albumin, Blood 1.5 g/dL (3.4-5.0); Albumin/Globulin Ratio 0.4 (0.8-1.8); Bilirubin, Total 0.7 mg/dL (0.1-1.0); Calcium, Blood 7.4 mg/dL (8.5-10.1); Creatinine, Blood 1.04 mg/dL (0.40-1.00); Globulin, Blood 3.4 g/dL (2.2-4.0); Potassium, Blood 3.8 mmol/L (3.5-5.5); Total Protein, Blood 4.9 g/dL (6.4-8.2)
--- NOTE | 2022-02-23 06:24 | NUR ---
SUMMARY NEURO/PSYCH/MOBILITY: PT IS ABLE TO ANSWER QUESTIONS. HARD OF HEARING. ORIENTED TO SELF, PLACE, AND FAMILY. UNSURE OF DATE OR WHY SHE IS IN THE HOSPITAL. PT HAS VERY MINIMAL MOVEMENT OF LOWER EXTREMETIES AND COMPLAINS OF PAIN WITH REPOSITIONING. LIMITED ROM IN UPPER EXTREMETIES, MOVES THEM WEAKLY, COMPLAINS OF PAIN WITH MOVEMENT. PT MAX ASSIST W/ALL ADL'S THIS SHIFT. PERRL. RESP: LUNGS LOVE CLEAR THROUGHOUT. RA. RR 20'S, SPO2 >92% CARDIAC: CONTINUOUS CARDIAC MONITORING. PT RHYTHMS ST AND SVT W/PVC'S. BP SOFT W/MAP 60'S OR LESS. LEVOPHED INFUSING @10MCG/MIN. POOR PERIPHERAL PULSES, 2+ EDEMA NOTED IN ALL EXTREMETIES. GI: PT DENIES NAUSEA. MODERATE LIQUID BROWN STOOL ON ADMISSION TO ICU. : ATTENDS IN PLACE. NO URINE OUTPUT THIS SHIFT. SKIN: SEE ASSESSMENT AND PICTURES IN CHART. IV: 22GA RAC INFUSING LEVOPHED. IV IN L FOOT FLUSHES BUT IS PAINFUL TO PT.
--- NOTE | 2022-02-23 06:41 | NUR ---
UPDATE THIS RN DISCUSSED WITH PT DAUGHTER SID REGARDING INCREASED NEED FOR PRESSORS BUT NOT HAVING THE IV ACCESS. UNABLE TO TITRATE LEVOPHED HIGHER THAN 10MCG/MIN IN THE 22G PERIFERALLY AND THE IV IN HER FOOT IS PAINFUL TO FLUSH. SID UNDERSTOOD AND ASKED THE PATIENT WHAT SHE WANTED. BOTH ARE IN AN UNDERSTANDING THAT EITHER A CENTRAL LINE OR PICC LINE IS APPRORIATE SO THAT PRESSORS CAN BE TITRATED UP AND LR CAN BE STARTED AT 250ML/HR. SID IS A CHARGE NURSE ON MEDICAL FLOOR AND WAS INQUIRING ANOTHER NURSE TO START A PICC LINE ON PT. CHARGE NURSE MARNIE ALSO INFORMED HER THAT THERE WOULD BE A PICC LINE NURSE IN THE AM IN ICU. RIGHT NOW BOTH THE PATIENT AND SID WOULD RATHER HAVE A PICC LINE OVER A CENTRAL LINE. WILL REPORT TO AM RN WHEN AVAILABLE.
[2022-02-23 06:43] LABS: Mean Corpuscular Volume 93 fL (80-100)
--- NOTE | 2022-02-23 09:53 | NUR ---
ASSUMED CARE REPORT FROM MISHEL/MELY RN AT 0700. PT RESTING IN BED. ALERT TO VERBAL STIMULI. DOES NOT FOLLOW COMMANDS. ORIENTED TO SELF ONLY. IRRITABLE c CARE. SR ON MONITOR, RATE VARIES FROM 90-150'S. LEVO GTT INFUSING VIA PIV TO LAC. PIV DOES NOT DRAW BACK BLOOD BUT FLUSHES WELL. ATTEMPTS TO OBTAIN CVC AND PICC UNSUCCESSFULLY. CONTACTED FAMILY, AT BEDSIDE, DETERMINING WHETHER TO ESCALATE CARE. PT EDEMATOUS, 2+ TO BUE AND BLE. ATTENDS IN PLACE. WILL CONTINUE TO MONITOR.
--- NOTE | 2022-02-23 13:54 | NUR ---
Spoke with Primary DAVID Camacho and discussed case. Family considering transporting Pt back to her facility on hospice. Pt requiring levophed to maintain B/P. Pt resting in bed with her eyes closed. Pt appears comfortable with no S/S of distress. Pt's daughter Nataly and Ina at bedside. Family confirms wishes to bring Pt back to her facility on hospice. Called and spoke with [facility] who can admitt Pt onto services today. Spoke with RN Bryon Sim and discussed case. Logistics worked out for transport with infusing levophed. After further discussion with family, family would like Pt to remain in the hospital and when an aditional family members arrives, Pt will be placed on comfort care. Spoke with Primary DAVID Penn and discussed case. Palliative Care will remain available.
--- NOTE | 2022-02-23 17:39 | NUR ---
SHIFT SUMMARY PT TRANSITIONED TO COMFORT CARE THIS SHIFT. LEVO TURNED OFF AFTER ALL FAMILY ARRIVED. PT RESPONSIVE TO VERBAL STIMULI. REMAINS ON RA. GIVEN MORPHINE 2 MG IVP PRIOR TO CARE. TOLERATED WELL. FAMILY REMAINS AT BEDSIDE. WILL CONTINUE TO MONITOR UNTIL REPORT TO ONCOMING NURSE.
--- NOTE | 2022-02-23 19:38 | NUR ---
ASSUMED CARE OF PT AT 1900. REPORT RECEIVED AT BEDSIDE. PT PRESENTS IN BED. OPENS EYES TO CONTACT. PT ACKNOWLEDGES HAVING SOME PAIN. MEDICATED PT WITH 2 MG MORPHINE WITH GOOD RESULTS. WILL REVIEW CHART AND PLAN OF CARE FOR THIS PT.
--- NOTE | 2022-02-23 21:18 | NUR ---
PT TRANSFERRED TO ROOM 326 AT 2044. REPORT GIVEN TO DAVID MORALES PT'S DAUGHTER AND FAMILY ACCOMPANY PT.
--- NOTE | 2022-02-24 06:48 | NUR ---
HEAD COUNSELOR SUMMARY: COMFORT CARE PATIENT. NONVERBAL; SOME MOANS AND GROANS, BUT NO WORDS. DOES NOT OPEN EYES TO SOUND. FAMILY AT BEDSIDE; DAUGHTER IS RN AND CONFIDENT R/T ADVOCATING FOR PT NEEDS. MEDICATED x2 W/ 2MG IV MORPHINE AND ONCE WITH 0.5MG IV ATIVAN. SLEPT REMAINDER OF NIGHT AFTER ATIVAN. BM x1 LAST NIGHT. CHANGED. WILL REPORT TO ONCOMING RN.
--- NOTE | 2022-02-24 17:13 | NUR ---
SHIFT SUMMARY: PT COMFORT CARE, NO INTAKE OF FLUIDS OR FOOD, NONVERBAL, OPENS EYES TO STIMULATION AND REPOSTIONING. PT MEDICATED X3, MORPHINE 0.25ML, ATIVAN 1MG, AND ROXENOL 2MG IV. PT HAD MOMENTS OF MOANS AND GROANS, BUT RESTED COMFORTABLY MOST OF THE SHIFT. PT PASSED AT 1540, NORMA VALDEZ, CRANKSHAFT BALANCER CONFIRMED PT . DR. GRUBER CALLED AND NOTIFIED OF PT PASSING. PT FAMILY IN ROOM THROUGHOUT THE SHIFT. PT FAMILY CHOOSE TAILORS HOME AND IS WITH PT UNTIL THEY NOTIFED CRANKSHAFT BALANCER.
--- NOTE | 2022-02-24 18:15 | NUR ---
HOME NOTE: [facility] CONTACTED BY HOME HEALTH BILLING SPECIALIST AT 1800. [facility] WILL CALL WITH A ETA TO TRAFFIC LINE PAINTER PT. NEXT OF KIN CONTACT INFORMATION GIVEN TO [facility]. PT RECVEID POST MORTEM CARE AND READY FOR TRAFFIC LINE PAINTER FROM MORTUARY.
== END 2022-02-24 15:40 | DRG 682 ==
LOC: ER 23:31 → ICUW 02-23 03:10 → MEDS 02-23 03:53 → ICUW 02-23 03:53 → MEDS 02-23 21:05
PROVIDERS: Family Medicine; Student in an Organized Health Care Education/Training Program; ADMIT Internal Medicine
PROC: 3E033XZ Introduction of Vasopressor into Peripheral Vein, Percutaneous Approach (ICD-10-PCS; principal; 2022-02-23)
DX: N17.9 Acute kidney failure, unspecified (principal); K72.00 Acute and subacute hepatic failure without coma; N39.0 Urinary tract infection, site not specified; Z79.82 Long term (current) use of aspirin; K21.9 Gastro-esophageal reflux disease without esophagitis; M19.90 Unspecified osteoarthritis, unspecified site; E78.5 Hyperlipidemia, unspecified; Z66 Do not resuscitate; D64.9 Anemia, unspecified; F03.90 Unspecified dementia, unspecified severity, without behavioral disturbance, psychotic disturbance, mood disturbance, and anxiety; I10 Essential (primary) hypertension; Z51.5 Encounter for palliative care
CPT/HCPCS: 0241U; 51701; 71045; 80053; 81001; 82803; 83605; 83735; 84145; 85025; 87086; 93005; 93010; 96361-59; 96365-59; 96366-59; 96368; 99291-25; A9270; C1751; J0696; J1650; J2060; J2270; J2543; J7030; J7060; J7120